=== PATIENT | female | born 1945 | race Caucasian/White ===

== ENCOUNTER 2016-10-14 15:19 | Inpatient (IN) | payer MEDICARE ==
[~2016-10-14] VITALS: Ht 144.8 cm; Wt 64.6 kg
[~2016-10-14 15:19] MED LIST: ASPIRIN81 M1 PO; CRESTOR10 MG PO; PLAVIX75 MG PO; ULTRAM50 MG PO
[2016-10-14 15:28] VITALS: BP 135/51
[2016-10-14 15:48] VITALS: BP 128/56
[2016-10-14 16:14] LABS: BASO % 0.3 % (0.0-1.0); EOS % 0.2 % (1.0-4.0); HEMATOCRIT 35.6 % (37.0-47.0); HEMOGLOBIN 11.7 g/dl (12.0-16.0); LYMPH # 2.1 10*3/uL (1.3-4.4); LYMPH % 18.2 % (27.0-41.0); MEAN CELL VOLUME 94.4 fl (81.0-99.0); MEAN CORPUSCULAR HGB CONC 32.9 g/dl (33.0-37.0); MONO # 1.4 10*3/uL (0.1-1.0); MONO % 12.5 % (3.0-9.0); NEUT # 7.9 10*3/uL (2.3-7.9); NEUT % 68.5 % (47.0-73.0); PLATELET COUNT AUTOMATED 186 10*3/uL (130-400); RED BLOOD COUNT 3.77 10*6/uL (4.10-5.10); RED CELL DISTRI WIDTH 13.5 % (0-14.5); WHITE BLOOD COUNT 11.5 10*3/uL (4.8-10.8)
[2016-10-14 16:24] LABS: PROTHROMBIN TIME 10.5 SECONDS (9.0-12.4)
[2016-10-14 16:33] LABS: ALBUMIN 3.2 gm/dl (3.1-4.5); ALKALINE PHOSPHATASE 89 U/L (45-117); BILIRUBIN, TOTAL 0.6 mg/dl (0.2-1.0); BUN 10 mg/dl (7-24); CARBON DIOXIDE 25 mmol/L (21-32); CHLORIDE 104 mmol/L (98-107); CPK 58 U/L (26-192); EST GLOM FILT AFRICAN AMERICAN > 60 ml/min; GLUCOSE 135 mg/dL (65-99); MAGNESIUM 2.3 mg/dL (1.5-2.1); POTASSIUM 4.3 mmol/L (3.5-5.1); SGOT/AST 15 IU/L (3-35); SGPT/ALT 13 U/L (12-78); SODIUM 141 mmol/L (136-145); TOTAL PROTEIN 7.2 gm/dL (6.4-8.2)
[2016-10-14 16:35] LABS: CKMB < 0.5 ng/ml (0.5-3.6); TROPONIN I < 0.015 ng/ml (<0.045)
[2016-10-14 16:53] VITALS: BP 124/66
[2016-10-14 19:01] LABS: CPK 63 U/L (26-192)
[2016-10-14 19:02] LABS: CKMB < 0.5 ng/ml (0.5-3.6); TROPONIN I < 0.015 ng/ml (<0.045)
[2016-10-14 20:00] VITALS: BP 155/75
[2016-10-14] MEDS ORDERED: CRESTOR20 M1 PO (20:23)
[2016-10-14 23:50] VITALS: BP 126/59
[2016-10-15 00:51] LABS: CPK 65 U/L (26-192)
[2016-10-15 00:52] LABS: CKMB < 0.5 ng/ml (0.5-3.6); TROPONIN I < 0.015 ng/ml (<0.045)
[2016-10-15 02:00] VITALS: BP 124/85
[2016-10-15 02:59] LABS: BILIRUBIN NEGATIVE (NEGATIVE); BLOOD TRACE-LYSED (NEGATIVE); CLARITY CLEAR (CLEAR); COLOR YELLOW (YELLOW); GLUCOSE NEGATIVE (NEGATIVE); KETONE 2+ (NEGATIVE); LEUKO ESTERASE TRACE (NEGATIVE); NITRITE NEGATIVE (NEGATIVE); PH 5.5 (5.0-9.0); PROTEIN NEGATIVE (NEGATIVE); SPECIFIC GRAVITY <= 1.005 (1.005-1.030); UROBILINOGEN 0.2 E.U./dl (0.2-1.0)
[2016-10-15 03:10] LABS: RBC 0-2 rbc/hpf (0-2); URINE REFLEX COMMENT YES (NO)
[2016-10-15 06:33] LABS: BUN 6 mg/dl (7-24); CARBON DIOXIDE 24 mmol/L (21-32); CHLORIDE 111 mmol/L (98-107); EST GLOM FILT AFRICAN AMERICAN > 60 ml/min; GLUCOSE 92 mg/dL (65-99); POTASSIUM 3.7 mmol/L (3.5-5.1); SODIUM 144 mmol/L (136-145)
[2016-10-15 06:38] LABS: CPK 84 U/L (26-192)
[2016-10-15 06:38] LABS: CHOLESTEROL 102 mg/dL (<200); FREE T4 1.13 ng/dl (0.76-1.46); HDL CHOLESTEROL 46 mg/dl (40-60); LDL CHOLESTEROL 44 mg/dL (9-159); TRIGLYCERIDES 60 mg/dl (<150); VLDL CHOLESTEROL 12 mg/dL (6-40)
[2016-10-15 06:44] LABS: THYROID STIM HORMONE (HS) 0.628 uIU/ml (0.358-4.75)
[2016-10-15 06:58] LABS: CKMB < 0.5 ng/ml (0.5-3.6); TROPONIN I < 0.015 ng/ml (<0.045)
[2016-10-15 07:29] LABS: BASO % 0.3 % (0.0-1.0); EOS % 0.3 % (1.0-4.0); HEMATOCRIT 31.7 % (37.0-47.0); HEMOGLOBIN 10.3 g/dl (12.0-16.0); LYMPH # 1.9 10*3/uL (1.3-4.4); LYMPH % 25.2 % (27.0-41.0); MEAN CELL VOLUME 93.5 fl (81.0-99.0); MEAN CORPUSCULAR HGB 30.4 pg (27.0-31.0); MEAN CORPUSCULAR HGB CONC 32.5 g/dl (33.0-37.0); MEAN PLATELET VOLUME 9.5 fl (9.6-12.3); MONO % 13.1 % (3.0-9.0); NEUT # 4.7 10*3/uL (2.3-7.9); NEUT % 60.8 % (47.0-73.0); PLATELET COUNT AUTOMATED 169 10*3/uL (130-400); RED BLOOD COUNT 3.39 10*6/uL (4.10-5.10); RED CELL DISTRI WIDTH 13.5 % (0-14.5); WHITE BLOOD COUNT 7.7 10*3/uL (4.8-10.8)
[2016-10-15 08:00] VITALS: BP 126/54
[2016-10-15 09:02] LABS: HEMOGLOBIN A1c 6.3 % (4.8-5.6)
[2016-10-15 09:55] LABS: FOLIC ACID 23.99 ng/mL (>5.38); VITAMIN D, 25-HYDROXY 10.3 ng/mL (30-100)
[2016-10-15 12:00] VITALS: BP 113/46
[2016-10-15 16:00] VITALS: BP 122/61
[2016-10-15 20:00] VITALS: BP 112/60
[2016-10-16 00:15] VITALS: BP 108/44
[2016-10-16 08:00] VITALS: BP 127/54
[2016-10-16 12:00] VITALS: BP 130/57
[2016-10-16] MEDS ORDERED: MUCINEX ER600 MG PO (12:43)
[2016-10-16] MEDS ORDERED: D-1000 185 MG-11 TAB PO (12:43)
[2016-10-16] MEDS ORDERED: LEVAQUIN500 M2 PO (12:44)
[2016-10-16] MEDS ORDERED: PREDNISONE10 MG PO (12:44)
== END 2016-10-16 13:18 | disposition home or self-care (01) | DRG 872 ==
LOC: ED 15:19 → EDHOLD 16:51 → 5E 16:51
PROVIDERS: Emergency Medicine; Internal Medicine
DX: A41.9 Sepsis, unspecified organism (principal); E78.5 Hyperlipidemia, unspecified; J40 Bronchitis, not specified as acute or chronic; I25.10 Atherosclerotic heart disease of native coronary artery without angina pectoris; Z95.5 Presence of coronary angioplasty implant and graft; Z82.49 Family history of ischemic heart disease and other diseases of the circulatory system; R42 Dizziness and giddiness

== ENCOUNTER → 2017-07-23 | Outpatient (CLI) | payer MEDICARE ==
[~2017-07-23] MED LIST changes: +CRESTOR20 M1 PO; +D-1000 185 MG-11 TAB PO; +LEVAQUIN500 M2 PO; +MUCINEX ER600 MG PO; +PREDNISONE10 MG PO
[2017-07-23 11:23] LABS: BUN 14 mg/dl (7-24); CREATININE 0.79 mg/dL (0.55-1.02)
[2017-07-23 11:27] LABS: THYROID STIM HORMONE (HS) 0.677 uIU/ml (0.358-4.75)
[2017-07-24 07:06] LABS: IMMUNOGLOBULIN G, QNT 831 mg/dL (700-1600); IMMUNOGLOBULIN M, QNT 80 mg/dL (26-217)
[2017-07-29 11:04] LABS: METHYLMALONIC ACID 706961 118 nmol/L (0-378)
== END ==
LOC: LAB 10:08
PROVIDERS: Psychiatry & Neurology Neurology
DX: Z13.89 Encounter for screening for other disorder (principal); R41.3 Other amnesia; R20.0 Anesthesia of skin; R20.2 Paresthesia of skin; E78.00 Pure hypercholesterolemia, unspecified

== ENCOUNTER → 2017-08-17 | Outpatient (CLI) | payer MEDICARE | END | disposition home or self-care (01) | LOC: MRI 08-14 09:00 | DX: R90.82 White matter disease, unspecified (principal); R41.3 Other amnesia; H81.10 Benign paroxysmal vertigo, unspecified ear; R20.0 Anesthesia of skin; R68.89 Other general symptoms and signs ==

== ENCOUNTER 2017-10-08 18:18 | Emergency (ER) | payer MEDICARE ==
[~2017-10-08] VITALS: Wt 78.5 kg
[2017-10-08] MEDS ORDERED: DOXYCYCLINE100 M3 PO (19:13)
[2017-10-08] MEDS ORDERED: PROAIR HFA8.5 GM INH (19:13)
[2017-10-08 19:28] VITALS: BP 138/79
== END 2017-10-08 19:21 | disposition home or self-care (01) ==
LOC: ED 18:18
DX: J18.1 Lobar pneumonia, unspecified organism (principal); J45.909 Unspecified asthma, uncomplicated; Z95.5 Presence of coronary angioplasty implant and graft; Z79.899 Other long term (current) drug therapy; Z79.82 Long term (current) use of aspirin

== ENCOUNTER → 2018-01-14 | Outpatient (CLI) | payer MEDICARE ==
[~2018-01-14] MED LIST changes: +DOXYCYCLINE100 M3 PO; +PROAIR HFA8.5 GM INH
== END | disposition home or self-care (01) ==
LOC: US 15:28
DX: E04.2 Nontoxic multinodular goiter (principal)

== ENCOUNTER 2019-02-09 20:43 | Emergency (ER) | payer MEDICARE ==
[~2019-02-09] VITALS: Ht 144.7 cm; Wt 63.5 kg
[2019-02-09 20:46] VITALS: BP 159/63
[2019-02-10] MEDS ORDERED: TRAMADOL HCL50 MG PO (00:02)
== END 2019-02-10 00:09 | disposition home or self-care (01) ==
LOC: ED 20:43
DX: M84.48XA Pathological fracture, other site, initial encounter for fracture (principal); Z95.5 Presence of coronary angioplasty implant and graft; Z79.899 Other long term (current) drug therapy; W55.89XA Other contact with other mammals, initial encounter; Y93.89 Activity, other specified; Y92.89 Other specified places as the place of occurrence of the external cause; Y99.9 Unspecified external cause status